=== PATIENT | female | born 1955 | race Caucasian/White ===

== ENCOUNTER → 2020-11-15 | Outpatient (CLI) | payer OTHER | LOC: EXRD 13:04 | DX: M25.512 Pain in left shoulder (principal) | CPT/HCPCS: 73030 ==

== ENCOUNTER → 2021-01-13 | Outpatient (CLI) | payer OTHER | LOC: KOH-I 11:13 | DX: M05.712 Rheumatoid arthritis with rheumatoid factor of left shoulder without organ or systems involvement (principal) | CPT/HCPCS: 73200 ==